=== PATIENT | female | born 1940 | race Caucasian/White ===

== ENCOUNTER 2019-05-26 09:59 | Day surgery (SDC) | payer MEDICARE ==
[~2019-05-26] VITALS: Ht 160 cm; Wt 78.4 kg
[~2019-05-26 09:59] MED LIST: ACET325 PO; ASCO500 PO; AZIT250 PO; CALCAVITD PO; CALCIUM PO; DOCU100 PO; ENOX40I SC; ERGO400 PO; ESCITALOPRAM OXA5 MG PO; HYDCHL12.5 PO; INSULANPEN; INSULANPEN SC; IRON150C PO; LISI20 PO; MAGCHL64ER PO; MAGNESIUM PO; MAGOXI400 PO; METF500 PO; METF500C PO; OXYACE5T PO; Oysco-500500 MG PO; POLY500 PO; PRAV20 PO; PRED10 PO; ROPI.25 PO; VERAPAMIL ER120 MG PO; VITAMIN B122500 MC1 PO; VITAMIN D31000 UNI1 PO; VITAMIN D32000 UNI3 PO; [UNRECOGNIZED DRUG - REMARK]; [UNRECOGNIZED DRUG - REMARK]
== END 2019-05-26 12:40 | disposition home or self-care (01) ==
LOC: ORSCSDS 09:59
PROVIDERS: Internal Medicine Gastroenterology
PROC: 0DBP8ZX Excision of Rectum, Via Natural or Artificial Opening Endoscopic, Diagnostic (ICD-10-PCS; principal; 2019-05-26 11:15)
PROC: 0DBH8ZX Excision of Cecum, Via Natural or Artificial Opening Endoscopic, Diagnostic (ICD-10-PCS; principal; 2019-05-26 11:15)
PROC: 0DBK8ZX Excision of Ascending Colon, Via Natural or Artificial Opening Endoscopic, Diagnostic (ICD-10-PCS; principal; 2019-05-26 11:15)
PROC: 0DBL8ZX Excision of Transverse Colon, Via Natural or Artificial Opening Endoscopic, Diagnostic (ICD-10-PCS; principal; 2019-05-26 11:15)
DX: Z12.11 Encounter for screening for malignant neoplasm of colon (principal); Z86.010 Personal history of colon polyps; D12.0 Benign neoplasm of cecum; D12.2 Benign neoplasm of ascending colon; D12.3 Benign neoplasm of transverse colon; K62.1 Rectal polyp; K64.8 Other hemorrhoids; K57.30 Diverticulosis of large intestine without perforation or abscess without bleeding; I10 Essential (primary) hypertension; E78.5 Hyperlipidemia, unspecified; E11.9 Type 2 diabetes mellitus without complications; Z87.891 Personal history of nicotine dependence; Z79.84 Long term (current) use of oral hypoglycemic drugs; Z79.4 Long term (current) use of insulin; Z79.899 Other long term (current) drug therapy
CPT/HCPCS: 82947; 88305; J2405; J2704; J7120